=== PATIENT | male | born 1945 | race Caucasian/White ===

== ENCOUNTER → 2018-08-18 | Outpatient (CLI) | payer OTHER ==
[~2018-08-18] MED LIST: ASACOL 400 MG400 M1 PO; ASPIRIN EC325 M1 PO; ASPIRIN325 PO; ATORVASTATIN CA20 MG PO; BYSTOLIC 5 MG5 M1 PO; C-10001000 M1 PO; CABERGOLINE 0.0.5 M1 PO; ELIQUIS5 MG PO; FISH OIL 1,0001 EAC5 PO; FLECAINIDE ACET50 M1 PO; FLEXERIL PO; LEVOTHYROXIN0.075 MG PO; LIALDA1.2 GM PO; LISINOPRIL-HCT1 EACH PO; LISINOPRIL10 MG PO; NAPROSYN500 MG PO; NORCO 5-325 TA1 EACH PO; PROSCAR 5MG TABL5 M1 PO; SULFASALAZINE500 M4 PO; VITAMIN D-32000 UNIT PO
== END ==
LOC: RAD 12:29
DX: M19.031 Primary osteoarthritis, right wrist (principal); M19.041 Primary osteoarthritis, right hand; Z88.8 Allergy status to other drugs, medicaments and biological substances

== ENCOUNTER → 2019-07-25 | Outpatient (CLI) | payer OTHER | LOC: RAD 14:04 | DX: J98.4 Other disorders of lung (principal); I77.819 Aortic ectasia, unspecified site ==

== ENCOUNTER 2019-11-06 09:39 | Inpatient (IN) | payer OTHER ==
[~2019-11-06] VITALS: Ht 190.5 cm; Wt 117.9 kg
--- NOTE | ~2019-11-06 | EEG ---
[facility] [place] [address] ELECTROENCEPHALOGRAM Name: JUDIE CHASE Room #: 459-P ADM IN M.R.#: [id number] Admission: 11/06/19 Attend Phys: Nghia Aldridge MD Discharge: Date of : 49 Report #: [id number] THIS REPORT FOR: //name// CC: Nghia Carroll DATE OF SERVICE: 11/07/2019 This patient is having some episodes, which are poorly defined. He says it has been ____ and it goes away. EEG was done to make sure there is no seizure activity. The background activity in this patient's EEG is about 9 Hz and 20 microvolts. The patient goes to sleep that is associated with bilateral slowing and vertex sharp waves. Photic stimulation is unremarkable. Throughout the record, no active epileptiform activity was noticed. IMPRESSION: This patient's EEG is mostly unremarkable. Thank you very much for this referral. By: [id number] Jackson Carroll MD /nt
--- NOTE | ~2019-11-06 | HC ---
[facility] [address] CONSULTATION Name: JUDIE CHASE Room #: 459-P ADM IN M.R.#: [id number] Admission: 11/06/19 Attend Phys: Nghia Aldridge MD Discharge: Date of : 49 Report #: [id number] THIS REPORT FOR: cc: Nghia Aldridge MD, Neal A. MD Khosla,Jackson Berman MD ~ CC: Nghia Carroll DATE OF SERVICE: 11/06/2019 HISTORY OF PRESENT ILLNESS: This is a 74-year-old male patient whose consultation was kindly requested by Dr. Baldwin from the Emergency Room and Dr. lAdridge, the admitting physician. I talked to both of them. From the record and from the history, it looks like that sometime early this morning around 6:30, he noticed that when he tried to open the cap of the bottle to get his medications, he could not do that. Then, he realized that he tried to send a text and he could not spell the words. He is right handed. He was brought to Emergency Room and the workup was done in this patient. As I understand from the patient, they did not have the CT here and they have to send him to [facility]. I was able to log into the [facility] computer and it does look like he had a noncontrast CT of the head, which demonstrated old strokes. The history is not very clear in that regard. It looks like he had TIAs in the past. He went to [facility]. The record here indicated that the patient may have had a stroke on the left side, but his symptoms were also left side and they did not correlate. 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 Summers. He has been on medications for that and he has some unusual spell for 3 years where he said his brain is rolling backward; to look for that, he had loop recorder by his science editor, which was removed about a year ago and that did not show any evidence for atrial fibrillation. Along the line, the patient does appear to had a patent foramen ovale. He was given aspirin in the Emergency Room and we need to find out from his science editor, Dr. Rendon what kind of antithrombotic therapy he had. Review of systems is positive for hypertension, but his blood pressure is not very high here and it was somewhat high when he came in. He presented this time with the symptom onset at ____ that his symptoms have completely resolved and he continued to be asymptomatic at the moment. I had recommended an MRI, which was subsequently done and the radiologist called me and I discussed with him the MRI and subsequently reviewed the films and it does show a pretty good size stroke, but the patient has no clinical symptoms and he himself states that all the symptoms have resolved and it had resolved when the consult was put in. MRA was read by different radiologist and I did not have a chance to talk to him. He has indicated some abnormality. It is difficult to tell on the films whether it is artifact or real. This patient does have by record history of high cholesterol. He has trouble with his knee. [facility] [address] [place] [address] CONSULTATION Name: JUDIE CHASE Room #: 459-P [facility] IN M.R.#: [id number] Admission: 11/06/19 Attend Phys: Nghia Aldridge MD Discharge: Date of : 49 Report #: [id number] PAST MEDICAL HISTORY: Positive for TIA involving the left side in association with some colonoscopy, which was done. FAMILY HISTORY: Unremarkable. SOCIAL HISTORY: He does not smoke or drink any alcohol. PHYSICAL EXAMINATION: Indicate he is alert, responsive, able to follow simple and complex command. His speech is very fluent, in fact he is very articulate. His cranial nerve examination 2-12 looks mostly unremarkable. Neuromuscular examination is symmetrical. There is no meningeal sign. There is no carotid bruit. Cardiac examinations appear unremarkable. No respiratory difficulty was noticed. Blood pressure is running about 145/107. IMPRESSION: 1. Cerebrovascular accident in the left parietal area. 2. History of patent foramen ovale. 3. Loop recorder was done and according to the patient, it showed no atrial fibrillation. Because of that, a patent foramen ovale as the cause of the patient's stroke needs to be considered. This is especially true in light of the fact that the MRI demonstrates a prior lacunar cerebrovascular accident. We need to look at the blood vessels intracranially and extracranially better. This is to make sure that he does not have any atherosclerotic disease there or ____. I think we should try to find out what his intracranial circulation looks to see where we need to keep the blood pressure. In general, we would like to give it high. His diastolic blood pressure is already high, so I did not give him a fluid bolus, but I did ask him to drink a lot of fluid. We should keep his blood pressure somewhat high. We will put him on dual-antiplatelet therapy and I gave him a loading dose of 300 mg of Plavix. He noticed his symptoms around 6:30 this morning. I am not certain that the symptoms started at that time. He noticed it when he tried to open the bottle. So, it is very possible the symptoms may have occurred even when he was sleeping and he just noticed at that time when he woke up. In any event, he is not an intervention candidate. I have ordered the CT angiogram stat and the main management is going to be symptomatic and looks like his symptoms have completely resolved. RECOMMENDATIONS: I will put a Cardiology consult and they can pull out his old records to see if they need to repeat his ARVIND or whether they can get by with the echocardiogram from [facility] echocardi[facility]. I will defer it to them and I put a consult for the science editor. Thank you very much for allowing me to share in the management of this patient. [facility] [address] [place] [address] CONSULTATION Name: JUDIE CHASE Room #: 459-P [facility] IN M.R.#: [id number] Admission: 11/06/19 Attend Phys: Nghia Aldridge MD Discharge: Date of : 49 Report #: [id number] More than 50 minutes of time was spent taking care of this patient today and majority of that was spent counseling and coordinating. By: 180 [id number] Jackson Carroll MD /nt
--- NOTE | ~2019-11-06 | EMS ---
[facility] [address] [place] [address] EMS Patient Care Report Name: JUDIE CHASE Room #: REG TR Duncan#: [id number] Admission: 11/06/19 Attend Phys: Discharge: Date of : 49 Report #: [id number] THIS REPORT FOR: //name// Report Transmitted: 11/06/2019 12:48 EMS Care Summary [place], [place]/[facility] Incident [id number] @ 11/06/2019 12:03 Incident Location [address] [facility] ER Patient JUDIE CHASE Male, 74 Years 1945 Patient Address [address] [place] [address] Patient History Hypertension (HTN),Stroke/CVA,Hyperlipidemia,TIA,Colitis,Hypothyroidism,Knee Replacement,Methicillin-resistant Staphylococcus aureus (MRSA), Patient Allergies Other drug allergy, Patient Medications Lisinopril, Atorvastatin, Aspirin, Synthroid, Metoprolol, Flecainide, Sulfatrim, Tambocor, Other, Folic acid, Chief Complaint MEDICAL TRANSFER-RETURN TRIP Disposition Transported No Lights/[place] Dispatch Reason Transfer/Interfacility/Palliative Care Transported To [facility] Narrative SCENE: THIS IS THE RETURN TRIP FOR PT BROUGHT TO [facility] FROM [facility] FOR A CT. NO CHANGES IN PT STATUS. DELAY AT [facility] DUE TO P NOT BEING IN THEIR [facility] [address] [place] [address] EMS Patient Care Report Name: JUDIE CHASE Room #: REG [facility]#: [id number] Admission: 11/06/19 Attend Phys: Discharge: Date of : 49 Report #: [id number] SYSTEM AND CONFUSION WITH PAPERWORK. PT COMPLETED CT, AND WAS ABLE TO SLIDE TO EMS STRETCHER. NO CHANGES IN PT STATUS DURING THIS TIME. AMBULANCE: VITALS MONITORED THROUGHOUT TRANSPORT. EMS CALLED [facility] TO ADVISE OF PT RETURN. NO CHANGES IN PT STATUS EN ROUTE. Initial Vitals @12:36P: 95,R: 20,BP: 155/115,Pain: 0/10,GCS: 15,SpO2: 93,Revised Trauma: 12, @12:47P: 90,R: 18,BP: 167/116,Pain: 0/10,GCS: 15,Revised Trauma: 12, @12:57P: 97,R: 20,BP: 155/111,Pain: 0/10,GCS: 15,Revised Trauma: 12, Assessments @12:35MENTAL:No Abnormalities,SKIN:No Abnormalities,HEENT:Head/Face: No Abnormalities,Eyes: No Abnormalities,Neck/Airway: No Abnormalities,LUNG SOUNDS:General: No Abnormalities,Left Upper: No Abnormalities,Right Upper: No Abnormalities,Left Lower: No Abnormalities,Right Lower: No Abnormalities,ABDOMEN:General: No Abnormalities,Left Upper: No Abnormalities,Right Upper: No Abnormalities,Left Lower: No Abnormalities,Right Lower: No Abnormalities,PELVIS//GI:No Abnormalities,EXTREMITIES:Left Arm: No Abnormalities,Right Arm: No Abnormalities,Left Leg: No Abnormalities,Right Leg: No Abnormalities,PULSE:NEURO:No Abnormalities,@12:43MENTAL:No Abnormalities,SKIN:No Abnormalities,HEENT:Head/Face: No Abnormalities,Eyes: No Abnormalities,Neck/Airway: No Abnormalities,LUNG SOUNDS:General: No Abnormalities,Left Upper: No Abnormalities,Right Upper: No Abnormalities,Left Lower: No Abnormalities,Right Lower: No Abnormalities,ABDOMEN:General: No Abnormalities,Left Upper: No Abnormalities,Right Upper: No Abnormalities,Left Lower: No Abnormalities,Right Lower: No Abnormalities,PELVIS//GI:No Abnormalities,EXTREMITIES:Left Arm: No Abnormalities,Right Arm: No Abnormalities,Left Leg: No Abnormalities,Right Leg: No Abnormalities,PULSE:NEURO:No Abnormalities, Impression Need for continuous medical supervision Procedures @12:03ALS AssessmentResponse: UnchangedSucceeded@12:36StretcherResponse: Unchanged@PTAGeneral CommentsResponse: Unchanged@PTASaline Lock 0cc (20 ga) Site: Hand-RightResponse: UnchangedSucceeded Timeline TOOL AND DIE MAKER APPRENTICE,General Comments,Response: Unchanged TOOL AND DIE MAKER APPRENTICE,Saline Lock 0cc 20 ga Site: Hand-Right,Response: UnchangedSucceeded, 12:03,Call Received 12:03,Dispatch Notified 12:03,Dispatched 12:03,[place] [address] EMS Patient Care Report Name: JUDIE CHASE Room #: REG TR Duncan#: [id number] Admission: 11/06/19 Attend Phys: Discharge: Date of : 49 Report #: [id number] 12:03,On Scene 12:03,At Patient 12:03,ALS Assessment,Response: UnchangedSucceeded, 12:36,Stretcher,Response: Unchanged 12:36,BP: 155/115 M,PULSE: 95,RR: 20 R,SPO2: 93 Ox,ETCO2: ,BG: ,PAIN: 0,GCS: 15, 12:38,Depart Scene 12:47,BP: 167/116 M,PULSE: 90,RR: 18 R,SPO2: Ox,ETCO2: ,BG: ,PAIN: 0,GCS: 15, 12:57,BP: 155/111 M,PULSE: 97,RR: 20 R,SPO2: Ox,ETCO2: ,BG: ,PAIN: 0,GCS: 15, 13:08,At Destination 13:08,Call Closed Disclaimer v1.1 Copyright 2020 [employer] This EMS Care Summary contains data elements from the applicable legal record (which may be displayed differently). It is designed to provide pertinent information for the following purposes: continuity of care, clinical quality, and state data reporting. The complete legal record is available to ED staff and administrators of the receiving hospital in [email or web address]'s Patient Tracker. All data is provided "as is."
[2019-11-06 09:52] VITALS: BP 168/101
[2019-11-06] MEDS ORDERED: TOPROL XL50 MG PO (10:18)
[2019-11-06] MEDS ORDERED: LISINOPRIL-HCT1 EAC1 PO (10:19)
[2019-11-06] MEDS ORDERED: FLECAINIDE ACET50 M1 PO (10:19)
[2019-11-06] MEDS ORDERED: SUPER THERAVIT1 EACH PO (10:20)
[2019-11-06] MEDS ORDERED: FLECAINIDE ACET50 M2 PO (10:20)
[2019-11-06] MEDS ORDERED: FOLIC ACID1 MG PO (10:20)
[2019-11-06] MEDS ORDERED: ASA81BEC PO (10:20)
[2019-11-06 10:46] LABS: ABSOLUTE NEUTROPHILS 4.3 thou/uL (1.4-8.2); BASOPHILS 1.3 % (0.0-2.0); EOSINOPHILS 0.8 % (0.0-3.0); HEMATOCRIT 45.3 % (42.0-52.0); HEMOGLOBIN 15.5 gm/dL (14.0-18.0); MCH 30.7 pg (26.0-34.0); MCHC 34.2 g/dL (28.0-37.0); MCV 89.8 fL (80.0-100.0); MONOCYTES 9.4 % (1.0-8.0); PLATELET COUNT 206 thou/uL (150-400); POLYS 68.5 % (36.0-66.0); RBC 5.05 mil/uL (4.50-6.00); RDW 14.8 % (10.5-14.5); WBC 6.3 thou/uL (4.0-11.0)
[2019-11-06 10:51] LABS: ANION GAP 10 mmol/L (7-16); BUN 18 mg/dL (7-18); CALCIUM 8.3 mg/dL (8.5-10.1); CHLORIDE 109 mmol/L (98-107); CO2 24 mmol/L (21-32); CREATININE 1.1 mg/dL (0.7-1.3); GLUCOSE 100 mg/dL (74-106); POTASSIUM 3.5 mmol/L (3.5-5.1); SODIUM 143 mmol/L (136-145)
[2019-11-06 11:01] LABS: ALBUMIN 3.5 g/dL (3.4-5.0); SGOT 15 U/L (15-37); SGPT 25 U/L (30-65); TOTAL BILIRUBIN 0.4 mg/dL (<0.1-1.0); TOTAL PROTEIN 6.9 g/dL (6.4-8.2); TROPONIN-I <0.06 ng/mL (<0.06)
[2019-11-06 11:02] LABS: APTT 30.1 Seconds (24.5-32.8); PROTIME 10.7 Seconds (9.3-11.4)
--- NOTE | 2019-11-06 14:59 | EKG ---
[facility] [place] [address] ELECTROCARDIOGRAM REPORT Name: JUDIE CHASE Room #: 459-P ADM IN M.R.#: [id number] Admission: 11/06/19 Attend Phys: Nghia Aldridge MD Discharge: Date of : 49 Report #: [id number] THIS REPORT FOR: cc: Nghia Aldridge MD, Neal A. MD Couchonnal, Luis F. MD ~ THIS REPORT FOR: //name// [facility] ED Test Date: 2019-11-06 Test Time: 10:17:59 Pat Name: JUDIE CHASE Department: Room: Gender: M Reefer Truck Driver: : 1945 Requested By: Rashard Baldwin Order Number: [id number] MD: Abraham Rendon Measurements Intervals [place] Rate: 64 P: 20 MS: 233 QRS: -47 QRSD: 122 T: -23 QT: 453 QTc: 468 Interpretive Statements Sinus rhythm Prolonged MS interval IVCD, consider atypical RBBB Probable inferior infarct, age indeterminate Compared to ECG 09/29/2012 08:58:05 Electronically Signed On 11-06-2019 14:57:45 CDT by Abraham Rendon [email or web address] <ELECTRONICALLY SIGNED> By: Abraham Rendon MD 11/06/19 1457 [id number] [id number] Abraham Rendon MD /EPI
[2019-11-06 16:14] VITALS: BP 145/107
[2019-11-06 20:00] VITALS: BP 147/117
--- NOTE | 2019-11-06 20:17 | NUR ---
REceived pt from the ER, alert and oriented x4. Admission done by admission nurse, diet placed as regualr as per MD. Pt belongings since it had valuables and some medication were brought down to the ER for to picking table worker since. POC followed with no signs or verbalizations of distress noted, endorsed to the night nurse.
[2019-11-07 05:03] VITALS: BP 102/56
--- NOTE | 2019-11-07 06:00 | NUR ---
Pt. rested quietly during the night when checked on during frequent rounds. He has been alert and oriented. Up ad murali and steady on his feet. Pt. offers no c/o pain. He has been SR on the it portfolio manager. No c/o shortness of air and he has been on room air.
[2019-11-07 07:22] VITALS: BP 131/92
[2019-11-07 11:02] LABS: TSH 1.847 uIU/mL (0.358-3.740)
[2019-11-07 15:00] VITALS: BP 137/85
--- NOTE | 2019-11-07 15:27 | 2DMMODE ---
[facility] [address] 2 D/M-MODE ECHOCARDIOGRAM Name: JUDIE CHASE LAYTON Room #: 459-P ADM IN M.R.#: [id number] Admission: 11/06/19 Attend Phys: Nghia Aldridge MD Discharge: Date of : 49 Report #: [id number] THIS REPORT FOR: cc: Nghia Aldridge MD, Neal A. MD Park, Jin S. MD ~ APPROVED REPORT Study performed: 11/07/2019 13:55:39 EXAM: Comprehensive 2D, Doppler, and color-flow Echocardiogram Patient Location: Bedside Room #: 459 Status: routine BSA: 2.45 HR: 58 bpm BP: 131/92 mmHg Rhythm: Bradycardia Other Information Study Quality: Adequate Indications CVA/TIA Hypertension/HDD Echo Enhancing Agent Indication: Rule out Shunt Agent(s) / Amount(s) Used: Agitated Saline 7 cc 2D Dimensions RVDd: 39.79 mm IVSd: 12.12 (7-11mm) LVOT Diam: 23.87 (18-24mm) LVDd: 44.72 mm PWd: 12.28 (7-11mm) Ascending Ao: 37.12 (22-36mm) LVDs: 31.13 (25-40mm) Aortic Root: 40.02 mm Volumes Left Atrial Volume (Systole) Single Plane 4CH: 39.93 mL Single Plane 2CH: 71.29 mL LA ESV Index: 26.00 mL/m2 Aortic Valve [facility] [place] [address] 2 D/M-MODE ECHOCARDIOGRAM Name: JUDIE CHASE LETI Room #: 459-P [facility] IN M.R.#: [id number] Admission: 11/06/19 Attend Phys: Nghia Aldridge, Discharge: Date of : 49 Report #: [id number] AoV Peak Jacinto.: 1.29 m/s AO Peak Gr.: 6.68 mmHg LVOT Max P.97 mmHg LVOT Max V: 0.86 m/s STAN Vmax: 2.98 cm2 Mitral Valve E/A Ratio: 1.1 MV Decel. Time: 238.84 ms MV E Max Jacinto.: 0.86 m/s MV A Jacinto.: 0.76 m/s MV PHT: 69.26 ms IVRT: 152.25 ms Pulmonary Valve PV Peak Jacinto.: 0.83 m/s PV Peak Gr.: 2.81 mmHg Pulmonary Vein P Vein S: 0.40 m/s P Vein A: 0.17 m/s P Vein D: 0.31 m/s P Vein A Dur.: 83.0 msec P Vein S/D Ratio: 1.29 Tricuspid Valve TR Peak Jacinto.: 2.39 m/s TR Peak Gr.: 22.79 mmHg PA Pressure: 28.00 mmHg Left Ventricle The left ventricle is normal size. There is normal LV segmental wall motion. Borderline concentric left ventricular hypertrophy. The left ventricular systolic function is normal. The left ventricular ejection fraction is within the normal range. LVEF is 55-60%. Grade II - pseudonormal filling dynamics. Right Ventricle The right ventricle is normal size. The right ventricular systolic function is normal. Atria The left atrium size is normal. Small PFO is possibly noted with agitated saline injection. The right atrium size is normal. Aortic Valve The aortic valve is normal in structure. No aortic regurgitation is present. There is no aortic valvular stenosis. Mitral Valve [facility] [place] [address] [place] [address] 2 D/M-MODE ECHOCARDIOGRAM Name: JUDIE CHASE LETI Room #: 459-P [facility] IN M.R.#: [id number] Admission: 11/06/19 Attend Phys: Nghia Aldridge, Discharge: Date of : 49 Report #: [id number] The mitral valve is normal in structure. There is no mitral valve regurgitation noted. No evidence of mitral valve stenosis. Tricuspid Valve The tricuspid valve is normal in structure. There is trace tricuspid regurgitation. Estimated PAP 28 mmHg. Pulmonic Valve The pulmonary valve is normal in structure. There is no pulmonic valvular regurgitation. Great Vessels The aortic root is normal in size. The inferior vena cava is not well visualized. Pericardium There is no pericardial effusion. <Conclusion> The left ventricle is normal size. The left ventricular systolic function is normal. Grade II - pseudonormal filling dynamics. The right ventricle is normal size. The left atrium size is normal. Small PFO is possibly noted with agitated saline injection. The aortic valve is normal in structure. There is no mitral valve regurgitation noted. There is trace tricuspid regurgitation. Estimated PAP 28 mmHg. <ELECTRONICALLY SIGNED> By: Quincy Lara MD 11/07/19 1525 1525 1525 Quincy Lara MD /INF
--- NOTE | 2019-11-07 16:03 | NUR ---
CM REVIEWED CHART AND ATTEMPTED TO CONTACT PATIENT X3 BUT NO ANSWER AT THIS TIME. CM ATTEMPTED TO REACH OUT TO PATIENTS EVI AND LEFT VM. SHE ATTEMPTED TO CONTACT CM BACK BUT CM REACHED OUT AGAIN AND NO ANSWER AT THIS TIME. PT WAS ADMITTED FOR POSSIBLE CVA/TIA AND HIS SYMPTOMS HAVE RESOLVED. PT NEEDS CT BUT HAS NOT BEEN COMPLETED YET. CM WILL ATTEMPT TO REACH OUT TO PATIENT AND HIS AGAIN IN THE AM. CM WILL CONTINUE TO FOLLOW TO ASSIST NEEDED.
[2019-11-07 19:33] VITALS: BP 142/83
--- NOTE | 2019-11-07 20:39 | NUR ---
Assumed patient care at 0715. Vital signs stable, abd soft and non-tender, BS x's 4. Patient reports that he had a large normal BM this am. LSCTA, skin is clean, dry and intact. CTA of Head and Neck completed this evening. Patient has been encouraged to increase his fluid intake. He has been consuming 75-100% of all meals with no difficulty swallowing. Patient is up ad murali with a steady gait, alert and oriented x's 4. Report given to on-coming RN.
[2019-11-08 03:43] VITALS: BP 109/69
[2019-11-08 07:07] VITALS: BP 129/90
--- NOTE | 2019-11-08 08:09 | NUR ---
Assumed pt care at 1900,A/OX4,VSS. Up ad murali w/o problems. Pt downstairs at HS for CT head/neck,results relayed to pt. Denies pain on assessment. Sinus rythm on the monitor. Encouraged to call for help as needed.
[2019-11-08 09:52] LABS: CHOLESTEROL 142 mg/dL (<200); HDL CHOLESTEROL 32 mg/dL (>40); LDL CHOLESTEROL 88 mg/dL (<100); TC:HDL 4.4 Ratio (Not establshd); TRIGLYCERIDE 110 mg/dL (<150); VLDL 22 mg/dL (<40)
[2019-11-08] MEDS ORDERED: METOPROLOL SUCC50 MG PO (12:55)
[2019-11-08] MEDS ORDERED: LISINOPRIL5 MG PO (12:56)
[2019-11-08] MEDS ORDERED: ASA81BEC PO (12:57)
[2019-11-08 14:14] VITALS: BP 129/90
--- NOTE | 2019-11-08 16:47 | NUR ---
Assumed pt care tihs am, VS stable and is able to ambulate with a steady gait. POC followed with no signs or verbalizations of distress have been noted. IV removed, dc intructions and prescriptions given to the pt. Pt is now dc, came to miner pick pt at the ER.
== END 2019-11-08 16:51 | disposition home or self-care (01) | DRG 62 ==
LOC: ER 09:39 → 4W 14:38 → ER 14:38 → 4W 14:55
PROVIDERS: Emergency Medicine; Psychiatry & Neurology Neuromuscular Medicine; ADMIT Family Medicine
PROC: 5A09357 Assistance with Respiratory Ventilation, Less than 24 Consecutive Hours, Continuous Positive Airway Pressure (ICD-10-PCS; 2019-11-06)
PROC: 3E03317 Introduction of Other Thrombolytic into Peripheral Vein, Percutaneous Approach (ICD-10-PCS; principal; 2019-11-07)
DX: I63.9 Cerebral infarction, unspecified (principal); K51.90 Ulcerative colitis, unspecified, without complications; Q21.1 Atrial septal defect; I10 Essential (primary) hypertension; E78.5 Hyperlipidemia, unspecified; D35.2 Benign neoplasm of pituitary gland; E78.00 Pure hypercholesterolemia, unspecified; E03.9 Hypothyroidism, unspecified; G47.33 Obstructive sleep apnea (adult) (pediatric); N40.0 Benign prostatic hyperplasia without lower urinary tract symptoms; Z95.818 Presence of other cardiac implants and grafts; Z79.82 Long term (current) use of aspirin; Z79.899 Other long term (current) drug therapy; Z88.8 Allergy status to other drugs, medicaments and biological substances
CPT/HCPCS: 10045

== ENCOUNTER → 2020-09-20 | Outpatient (CLI) | payer OTHER ==
[~2020-09-20] MED LIST changes: +ASA81BEC PO; +FLECAINIDE ACET50 M2 PO; +FOLIC ACID1 MG PO; +LISINOPRIL-HCT1 EAC1 PO; +LISINOPRIL5 MG PO; +METOPROLOL SUCC50 MG PO; +SUPER THERAVIT1 EACH PO; +TOPROL XL50 MG PO
== END ==
LOC: MRI 14:43
PROVIDERS: ATTEND Family Medicine
DX: E22.0 Acromegaly and pituitary gigantism (principal); D35.2 Benign neoplasm of pituitary gland

== ENCOUNTER → 2020-10-10 | Outpatient (CLI) | payer OTHER | LOC: SJCVC 15:19 | PROVIDERS: ATTEND Internal Medicine Cardiovascular Disease | DX: R94.31 Abnormal electrocardiogram [ECG] [EKG] (principal); I63.9 Cerebral infarction, unspecified; R42 Dizziness and giddiness; I10 Essential (primary) hypertension; E78.5 Hyperlipidemia, unspecified; D35.2 Benign neoplasm of pituitary gland; Z98.890 Other specified postprocedural states; Z88.8 Allergy status to other drugs, medicaments and biological substances; Z79.899 Other long term (current) drug therapy; Z86.16 Personal history of COVID-19; Z87.891 Personal history of nicotine dependence; Z82.49 Family history of ischemic heart disease and other diseases of the circulatory system ==

== ENCOUNTER → 2020-11-06 | Outpatient (CLI) | payer OTHER | LOC: SJCVC 14:59 | PROVIDERS: ATTEND Internal Medicine Cardiovascular Disease | DX: R94.31 Abnormal electrocardiogram [ECG] [EKG] (principal); I45.10 Unspecified right bundle-branch block; I47.1 Supraventricular tachycardia; I48.91 Unspecified atrial fibrillation; E78.5 Hyperlipidemia, unspecified; I10 Essential (primary) hypertension; Z88.8 Allergy status to other drugs, medicaments and biological substances; Z79.899 Other long term (current) drug therapy; Z86.16 Personal history of COVID-19; Z86.73 Personal history of transient ischemic attack (TIA), and cerebral infarction without residual deficits; Z87.891 Personal history of nicotine dependence; Z82.49 Family history of ischemic heart disease and other diseases of the circulatory system ==

== ENCOUNTER → 2020-12-30 | Outpatient (CLI) | payer OTHER ==
[~2020-12-30] VITALS: Ht 190.5 cm; Wt 119.0 kg
[~2020-12-30] MED LIST changes: +SUPER B-50 COM1 EACH PO; +TOPROL XL100 MG PO; +XARELTO20 MG PO; +ZESTRIL40 MG PO
--- NOTE | ~2020-12-30 | P ---
[facility] [place] [address] PROCEDURE REPORT Name: JUDIE CHASE Room #: REG [facility]#: [id number] Admission: 12/30/20 Attend Phys: Abraham Rendon MD Discharge: Date of : 49 Report #: [id number] THIS REPORT FOR: cc: Nghia Aldridge MD, Neal A. MD Couchonnal, Luis F. MD ~ DATE OF SERVICE: 12/30/2020 PREOPERATIVE DIAGNOSIS: Supraventricular tachycardia. POSTOPERATIVE DIAGNOSIS: Atrial fibrillation. HISTORY: The patient is a 75-year-old male with recent palpitations, presyncopal symptoms who wore a recent ekg monitor, which showed 170 episodes of SVT. There was 1 prolonged episode of SVT, which appeared to likely be an atrial tachycardia lasting an hour and 45 minutes. He is here for EP study and possible ablation. DESCRIPTION OF PROCEDURE: The patient was brought to the EP laboratory in fasting and sedated state, prepped and draped in sterile fashion, obtained access to the bilateral femoral veins placing 8, 9, 7 and 6-Indonesian short sheaths using the modified Seldinger technique. Next, under fluoroscopy, 3 quadripolar catheters were placed at the HRA, His and RV positions and a decapolar catheter was placed in the coronary sinus for left atrial pacing and recording. At baseline, the patient was in sinus rhythm, sinus cycle length of 820 milliseconds, CA interval 180 milliseconds, QRS duration 88 milliseconds, QT interval 400 milliseconds, AH interval 150 milliseconds, HV interval 40 milliseconds. Next, atrial burst pacing was performed and AV block was noted at 440 milliseconds. AV sergio ERP was noted at 400 milliseconds at [address] cycle length. There was no evidence of VA conduction pacing at 600 milliseconds. Isoproterenol was initiated at 2 mcg per minute and AV block was noted at 290 milliseconds. Atrial ERP was noted at 180 milliseconds at [address] cycle length. Double atrial extrastimuli were delivered and no SVT was induced. Ventricular ERP was noted at 250 milliseconds at a [address] cycle length. VA conduction was both midline and decremental. Next isoproterenol infusion was initiated at 4 mcg per minute. There was one episode of SVT at 345 milliseconds, septal VA time of 400 milliseconds, which lasted about 30 seconds and terminated with negative P waves in the inferior leads. This could not be further characterized as I could not reinduce this. Next, isoproterenol infusion was increased further to 6 mcg and there was some spontaneous atrial tachycardia that appeared identical but then this degenerated into atrial fibrillation and isoproterenol was turned off. A 200 joule cardioversion was performed. Repeat EP study was attempted, but the patient went right back into AFib and another cardioversion was performed. Again, attempted to re-induce tachycardia, but he go directly into AFib. It appeared that likely the patient had a focal atrial tachycardia degenerating [facility] [address] [place] [address] PROCEDURE REPORT Name: JUDIE CHASE Room #: REG [facility]#: [id number] Admission: 12/30/20 Attend Phys: Abraham Rendon MD Discharge: Date of : 49 Report #: [id number] into atrial fibrillation, which was likely arising from one of the pulmonary veins, but could not be further characterized at this point. Another cardioversion was performed and the patient was in sinus rhythm. As such, at this point, the procedure was concluded. Catheters and sheaths were pulled and hemostasis was obtained. CONCLUSIONS: 1. EP study with evidence of an atrial tachycardia that degenerates to atrial fibrillation, likely arising from one of the pulmonary veins. 2. Evidence of atrial fibrillation on EP study. 3. Normal SA sergio function. 4. Normal AV sergio function. 5. Normal His-Purkinje function. 6. No evidence of AV sergio reentrant tachycardia or accessory pathway mediated arrhythmias. RECOMMENDATIONS: Given the finding of atrial fibrillation, I will discuss potential AFib ablation in the near future with the patient. By: [id number] Abraham Rendon MD /milena
[2020-12-30 10:02] LABS: ABSOLUTE NEUTROPHILS 3.5 thou/uL (1.4-8.2); BASOPHILS 1.2 % (0.0-2.0); EOSINOPHILS 0.9 % (0.0-3.0); HEMATOCRIT 43.2 % (42.0-52.0); HEMOGLOBIN 14.4 gm/dL (14.0-18.0); MCH 29.9 pg (26.0-34.0); MCHC 33.2 g/dL (28.0-37.0); MCV 89.9 fL (80.0-100.0); MONOCYTES 12.1 % (1.0-8.0); PLATELET COUNT 198 thou/uL (150-400); POLYS 60.8 % (36.0-66.0); RBC 4.81 mil/uL (4.50-6.00); RDW 14.5 % (10.5-14.5); WBC 5.8 thou/uL (4.0-11.0)
[2020-12-30 10:06] VITALS: BP 165/96
[2020-12-30 10:15] LABS: APTT 28.6 Seconds (24.5-32.8); CALCIUM 8.4 mg/dL (8.5-10.1); INR 1.02; POTASSIUM 3.8 mmol/L (3.5-5.1); PROTIME 11.1 Seconds (10.5-12.1)
[2020-12-30 10:22] LABS: ALBUMIN 3.5 g/dL (3.4-5.0); TOTAL BILIRUBIN 0.6 mg/dL (0.2-1.0); TOTAL PROTEIN 6.8 g/dL (6.4-8.2)
== END | disposition home or self-care (01) ==
LOC: CATH 12-11 11:10
PROVIDERS: ATTEND Internal Medicine Cardiovascular Disease
DX: I48.91 Unspecified atrial fibrillation (principal); R00.2 Palpitations; I10 Essential (primary) hypertension; E78.00 Pure hypercholesterolemia, unspecified; N40.0 Benign prostatic hyperplasia without lower urinary tract symptoms; E03.9 Hypothyroidism, unspecified; Z98.890 Other specified postprocedural states; Z79.899 Other long term (current) drug therapy; Z86.73 Personal history of transient ischemic attack (TIA), and cerebral infarction without residual deficits; Z82.49 Family history of ischemic heart disease and other diseases of the circulatory system; Z87.19 Personal history of other diseases of the digestive system; Z87.891 Personal history of nicotine dependence
CPT/HCPCS: 62110; 62900; 70005

== ENCOUNTER → 2021-03-18 | Outpatient (CLI) | payer OTHER | LOC: SJCVCIMAG 06:53 | PROVIDERS: ATTEND Internal Medicine Cardiovascular Disease | DX: R00.0 Tachycardia, unspecified (principal); I10 Essential (primary) hypertension; I48.0 Paroxysmal atrial fibrillation; I48.92 Unspecified atrial flutter; R53.83 Other fatigue; E78.5 Hyperlipidemia, unspecified; Z86.73 Personal history of transient ischemic attack (TIA), and cerebral infarction without residual deficits; Z88.8 Allergy status to other drugs, medicaments and biological substances; Z79.899 Other long term (current) drug therapy; Z86.16 Personal history of COVID-19; Z82.49 Family history of ischemic heart disease and other diseases of the circulatory system; Z87.891 Personal history of nicotine dependence ==

== ENCOUNTER → 2021-05-01 | Outpatient (CLI) | payer OTHER | LOC: SJCVC 13:30 | PROVIDERS: ATTEND Internal Medicine Cardiovascular Disease | DX: R94.31 Abnormal electrocardiogram [ECG] [EKG] (principal); I44.0 Atrioventricular block, first degree; I45.89 Other specified conduction disorders; I48.0 Paroxysmal atrial fibrillation; I47.1 Supraventricular tachycardia; I10 Essential (primary) hypertension; E78.5 Hyperlipidemia, unspecified; Z78.9 Other specified health status; Z88.8 Allergy status to other drugs, medicaments and biological substances; Z79.899 Other long term (current) drug therapy; Z87.891 Personal history of nicotine dependence; Z86.16 Personal history of COVID-19; Z82.49 Family history of ischemic heart disease and other diseases of the circulatory system ==